=== PATIENT | male | born 1990 | race African-American/Black ===

== ENCOUNTER 2016-03-25 20:47 | Emergency (ER) | payer OTHER ==
[~2016-03-25] VITALS: Ht 152.4 cm; Wt 42.2 kg
[~2016-03-25 20:47] MED LIST: ACETAMINOPHEN-1 EAC1 PO; AUGMENTIN 875-1 EAC1 ORAL; CLEOCIN150 MG ORAL; CLINDAMYCIN HC150 MG ORAL; CLINDAMYCIN HC300 MG ORAL; HYDROCODON-ACE1 EA15 ORAL; IBUPROFEN600 MG ORAL; NKM; NORCO 5-325 TA1 EACH ORAL
[2016-03-25 21:05] VITALS: BP 136/81
[2016-03-25] MEDS ORDERED: BACTROBAN15 GM TOPIC (21:44)
[2016-03-25] MEDS ORDERED: Bacitracin Oint UD TOPIC ONE (21:45)
--- NOTE | 2016-03-25 21:45 | Emergency Room Report ---
History of Present Illness General Chief Complaint: Wound Recheck/Suture Removal Source: Patient Present Illness HPI Is a 26-year-old male who is right-hand dominant. He presents with chief complaint of suture removal. He had lacerated his hand just beneath the fifth MCP joint. This was a month ago. He is now back for suture removal. He said it bled initially for over a week. Now no drainage. No fever chills but no nausea no vomiting. He denies any other complaint. Allergies: Coded Allergies: No Known Allergies (Unverified , 10/05/12) Patient History Past Medical History: see triage record, old chart reviewed Past Surgical History: other Pertinent Family History: none Social History: Reports: smoking Immunizations: other Reviewed Nursing Documentation: PMH: Agreed, PSxH: Agreed Nursing Documentation-PMH Past Medical History: No History, Except For Hx Asthma: Yes Review of Systems Eye: Denies: blurred vision, eye pain ENT: Denies: ear pain, nose congestion, throat swelling Respiratory: Denies: cough, shortness of breath Cardiovascular: Denies: chest pain, palpitations Gastrointestinal: Denies: abdominal pain, diarrhea, nausea, vomiting Musculoskeletal: Denies: back pain, joint pain Skin: Denies: rash Neurological: Denies: headache, numbness Endocrine: Denies: increased thirst, increased urine Hematologic/Lymphatic: Denies: easy bruising All Other Systems: negative except mentioned in HPI Physical Exam Vital Signs Date Time Temp Pulse Resp B/P Pulse Ox O2 Delivery O2 Flow Rate FiO2 03/25/16 21:00 97.3 83 14 136/81 100 Room Air vitals normal Sp02 EP Interpretation: reviewed, normal General Appearance: well appearing, no apparent distress, alert Head: normocephalic, atraumatic Eyes: bilateral eye EOMI, bilateral eye PERRL ENT: hearing grossly normal, normal pharynx Neck: full range of motion, supple, no meningismus Respiratory: chest non-tender, lungs clear, normal breath sounds Cardiovascular #1: regular rate, rhythm, no murmur Gastrointestinal: normal bowel sounds, non tender, no mass, no organomegaly, no bruit, non-distended Musculoskeletal: back normal, gait/station normal, normal range of motion, other - Right hand: At the base of the fifth MCP joint sutures are in place. It scabbed over with dry blood. No redness. No fever. Full range of motion. Neurologic: alert, oriented x3 Psychiatric: mood/affect normal Skin: warm/dry Procedures Additional Procedure Procedure Narrative Procedure: Suture removal Indication: Scheduled Description: Remove the sutures using a small scissors. Dry blood removed also. Wound is healing well except for at the distal in with minimal drainage. Good granulation tissue. Still dehisce slightly. Dressing placed. Medical Decision Making Diagnostic Impression: Primary Impression: Encounter for wound re-check Additional Impression: Encounter for removal of sutures ER Course Patient here for suture removal. Wound is still slightly dehisced. This will heal slowly. No new infection. We'll treat with topical antibiotics. We'll discharge home. Last Vital Signs Date Time Temp Pulse Resp B/P Pulse Ox O2 Delivery O2 Flow Rate FiO2 03/25/16 21:05 97.3 83 14 136/81 100 Room Air Status: improved Disposition: HOME, SELF-CARE Condition: Stable Scripts Mupirocin (BACTROBAN CR) 15 Gm Cream..g. 1 APPLIC TOPIC THREE TIMES A DAY, #30 GM Prov: FEI MONTALVO M.D. 03/25/16 Patient Instructions: Wound Check Additional Instructions: Followup with your DrFer in 7 days. Return if worse. FEI MONTALVO M.D. Mar 25, 2016 21:45
[2016-03-25 21:52] VITALS: BP 136/81
== END 2016-03-25 21:52 | disposition home or self-care (01) ==
LOC: EMR 21:52
DX: T81.33XA Disruption of traumatic injury wound repair, initial encounter (principal); Y84.8 Other medical procedures as the cause of abnormal reaction of the patient, or of later complication, without mention of misadventure at the time of the procedure; Z48.02 Encounter for removal of sutures
CPT/HCPCS: 99283

== ENCOUNTER 2016-07-11 16:11 | Emergency (ER) | payer OTHER ==
[~2016-07-11] VITALS: Ht 154.9 cm; Wt 44.5 kg
[~2016-07-11 16:11] MED LIST changes: +BACTROBAN15 GM TOPIC
[2016-07-11 16:25] VITALS: BP 123/84
[2016-07-11] MEDS ORDERED: CLINDAMYCIN HC150 MG ORAL (16:43)
[2016-07-11] MEDS ORDERED: IBUPROFEN600 MG ORAL (16:43)
--- NOTE | 2016-07-11 16:48 | Emergency Room Report ---
History of Present Illness General Chief Complaint: Toothache Source: Patient Present Illness HPI 26 y/o male c/o right sided dental pain x 3 days. States that he has reoccurring dental infections that usually result in tooth extraction. States that he has had previous hx of dental abscess and had I&D a few years ago but nothing recent. States right lower tooth is painful and believes he's having tooth infection. Pain is worse with movement of jaw and with eating food. No other modifying factors or physical complaints. Allergies: Coded Allergies: No Known Allergies (Unverified , 10/05/12) Patient History Past Medical History: see triage record Social History: Reports: smoking Reviewed Nursing Documentation: PMH: Agreed, PSxH: Agreed Nursing Documentation-PMH Past Medical History: No History, Except For Hx Asthma: Yes Review of Systems All Other Systems: negative except mentioned in HPI Physical Exam Vital Signs Date Time Temp Pulse Resp B/P Pulse Ox O2 Delivery O2 Flow Rate FiO2 07/11/16 16:15 97.3 83 14 123/84 99 Room Air Sp02 EP Interpretation: reviewed, normal General Appearance: no apparent distress, alert, GCS 15, non-toxic Head: normocephalic, atraumatic Eyes: bilateral eye PERRL, bilateral eye normal inspection ENT: hearing grossly normal, normal pharynx, no angioedema, normal voice, other - Poor dentition with abscent teeth present. Right buccal fluctulent mass thats TTP and warm to touch present. Neck: full range of motion, supple/symm/no masses Respiratory: chest non-tender, lungs clear, normal breath sounds, speaking full sentences Cardiovascular #1: regular rate, rhythm, no edema Musculoskeletal: gait/station normal Neurologic: alert, oriented x3 Skin: normal color, no rash, warm/dry, well hydrated Lymphatic: no adenopathy Procedures Incision and Drainage Incision and Drainage : Consent: Verbal Site: Right buccal mucosa Blade Size: 18g needle Wound Location: other - Right buccal mucosa Anesthesia: Lidocaine w/ Epi Volume Anesthetic (ccs): 2 Progress Using a 27g 1" needle, 2cc of lido w/ epi was injected into buccal mucosa. An 18g need was then used to aspirate the wound. There was no fluid returned. Hemostasis was then achieved via direct pressure with gauze. The patient was then given gauze to bite on to prevent trauma from numbing. Post procedural bleeding was approx 3ccs. Patient tolerated procedure w/o complications. Medical Decision Making PA Attestation Dr. Leo is my supervising physician with whom patient management has been discussed with. Diagnostic Impression: Primary Impression: Facial abscess Additional Impressions: dental pain Dental caries ER Course Pt. presents to the ED c/o dental pain Ddx considered but are not limited to dental fracture, dental abscess, dental caries, tooth avulsion, facial abscess Vital signs: are WNL, pt. is afebrile H&PE are most consistent with abscess of buccal mucosa ORDERS: none required at this time, the diagnosis is clinical ED INTERVENTIONS: Needle Aspiration. DISCHARGE: At this time pt. is stable for d/c to home. Will provide printed patient care instructions, and any necessary prescriptions. Care plan and follow up instructions have been discussed with the patient prior to discharge. Last Vital Signs Date Time Temp Pulse Resp B/P Pulse Ox O2 Delivery O2 Flow Rate FiO2 07/11/16 16:25 97.3 83 14 123/84 99 Room Air Status: improved Disposition: HOME, SELF-CARE Condition: Stable Scripts Clindamycin Hcl* (CLINDAMYCIN HCL*) 150 Mg Capsule 300 MG ORAL TID, #30 CAP Prov: DELICIA DAWSON P.A. 07/11/16 Ibuprofen* (MOTRIN*) 600 Mg Tablet 600 MG ORAL Q6H Y for For Pain, #30 TAB Prov: DELICIA DAWSON P.A. 07/11/16 Referrals: [facility],REFERRING (PCP) Patient Instructions: Abscess, Dental Caries Additional Instructions: Take medication as directed. Patient instructed to take ibuprofen and tylenol as needed for pain. Patient to follow up with dentist on Wednesday. Patient should come back sooner if their symptoms do not get better within 3 days of starting treatment or if the red area gets bigger, more swollen, or more painful. DELICIA DAWSON July 11, 2016 16:48
[2016-07-11 17:11] VITALS: BP 123/84
== END 2016-07-11 17:13 | disposition home or self-care (01) ==
LOC: EMR 16:27
DX: L02.01 Cutaneous abscess of face (principal); K02.9 Dental caries, unspecified; F17.200 Nicotine dependence, unspecified, uncomplicated; J45.909 Unspecified asthma, uncomplicated
CPT/HCPCS: 10060

== ENCOUNTER 2018-08-17 12:44 | Emergency (ER) | payer OTHER ==
[~2018-08-17] VITALS: Ht 154.9 cm; Wt 44.5 kg
[2018-08-17] MEDS ORDERED: VENTOLIN HFA18 GM INH (12:50)
[2018-08-17 13:00] VITALS: BP 122/78
--- NOTE | 2018-08-17 14:00 | Emergency Room Report ---
History of Present Illness General Chief Complaint: Toothache Source: Patient Present Illness HPI 28-year-old male presents to the emergency department complaining of 9 out of 10 severity intermittent progressive swelling and tenderness to the left inner cheek over the course of 4 days. He states these symptoms have been intermittent x several months but usually resolve in a day or so. Patient reports frequent dental infections he states that he is supposed to have dental follow-up. Patient denies tooth pain at this time he states pain is primarily in the soft tissues denies fevers or chills denies neck pain or swollen tender lymph nodes. Patient reports that the swelling comes and goes. Denies any aggravating or relieving factors. Allergies: Coded Allergies: No Known Allergies (Unverified , 10/05/12) Patient History Past Medical History: see triage record Past Surgical History: none Pertinent Family History: none Immunizations: UTD Reviewed Nursing Documentation: PMH: Agreed; PSxH: Agreed Nursing Documentation-PMH Hx Asthma: Yes Review of Systems All Other Systems: negative except mentioned in HPI Physical Exam Vital Signs Date Time Temp Pulse Resp B/P (MAP) Pulse Ox O2 Delivery O2 Flow Rate FiO2 08/17/18 12:49 97.5 60 19 122/78 (93) 99 Room Air Sp02 EP Interpretation: reviewed, normal General Appearance: no apparent distress, alert, GCS 15, non-toxic Head: normocephalic, atraumatic Eyes: bilateral eye normal inspection, bilateral eye PERRL ENT: hearing grossly normal, normal pharynx, normal voice, other - dentition is normal, no obvious carries, no palpable fluctuance in the gum lines. swelling to the left lower salivary gland, no fluctuance palpated. pt. with moderate ttp. Neck: full range of motion, no meningismus, no bony tend Respiratory: lungs clear, normal breath sounds, speaking full sentences Cardiovascular #1: regular rate, rhythm Musculoskeletal: back normal, gait/station normal, normal range of motion, non- tender Neurologic: alert, oriented x3, responsive, motor strength/tone normal, sensory intact, speech normal, grossly normal Psychiatric: judgement/insight normal Skin: normal color, no rash, warm/dry, well hydrated Lymphatic: no adenopathy Medical Decision Making PA Attestation Dr. Leroy is my supervising Physician whom patient management has been discussed with. Diagnostic Impression: Primary Impression: Sialodocholithiasis Additional Impression: Sialoadenitis, unspecified ER Course 28-year-old male presents to the emergency department complaining of 9 out of 10 severity intermittent progressive swelling and tenderness to the left inner cheek over the course of 4 days. He states these symptoms have been intermittent x several months but usually resolve in a day or so. Patient reports frequent dental infections he states that he is supposed to have dental follow-up. Patient denies tooth pain at this time he states pain is primarily in the soft tissues denies fevers or chills denies neck pain or swollen tender lymph nodes. Patient reports that the swelling comes and goes. Denies any aggravating or relieving factors. Ddx considered but are not limited to cellulitis, dental abscess, orbital cellulitis, d/l tooth, dental pain. trigeminal neuralgia, sialoadenitis Vital signs: are WNL, pt. is afebrile H&PE are most consistent with infected Sialoadenitis ORDERS: none required at this time, the diagnosis is clinical ED INTERVENTIONS: None required at this time. DISCHARGE: At this time pt. is stable for d/c to home. Will provide printed patient care instructions, and any necessary prescriptions. Care plan and follow up instructions have been discussed with the patient prior to discharge. Last Vital Signs Date Time Temp Pulse Resp B/P (MAP) Pulse Ox O2 Delivery O2 Flow Rate FiO2 08/17/18 12:49 97.5 60 19 122/78 (93) 99 Room Air Status: improved Disposition: HOME, SELF-CARE Condition: Stable Scripts Chlorhexidine Gluconate (CHLORHEXIDINE GLUCONATE) 473 Ml Mouthwash 15 ML MM TID, #473 ML Prov: Kya Clayton 08/17/18 Acetaminophen* (TYLENOL EXTRA STRENGTH*) 500 Mg Tablet 500 MG ORAL Q6H, #20 TAB 0 Refills Prov: Kya Clayton 08/17/18 Amoxicillin/Potassium Clav 875-125* (AUGMENTIN 875-125 TABLET*) 1 Each Tablet 1 TAB ORAL TWICE A DAY for 7 Days, #14 TAB Prov: Kya Clayton 08/17/18 Referrals: NON PHYSICIAN (PCP) Patient Instructions: Salivary Gland Infection, Salivary Stone Additional Instructions: Take medications as directed. Follow up with a Dentist in 3-5 days, even if your symptoms have resolved. * * --Please review list of Dental clinics, if you do not already have a Dentist Return sooner to ED if new symptoms occur, or current symptoms become worse. - Please note that this Emergency Department Report was dictated using [employer] Gamesdisease education specialist technology software, occasionally this can lead to erroneous entry secondary to interpretation by the dictation equipment. Kya Clayton Aug 17, 2018 14:00
[2018-08-17] MEDS ORDERED: TYLENOL EXTRA500 MG ORAL (14:02)
[2018-08-17] MEDS ORDERED: AUGMENTIN 875-1 EAC1 ORAL (14:02)
[2018-08-17] MEDS ORDERED: CHLORHEXIDINE473 ML MM (14:02)
[2018-08-17 14:17] VITALS: BP 122/78
== END 2018-08-17 14:17 | disposition home or self-care (01) ==
LOC: EMR 13:10
DX: K11.5 Sialolithiasis (principal); J45.909 Unspecified asthma, uncomplicated
CPT/HCPCS: 99282

== ENCOUNTER 2018-12-16 14:55 | Emergency (ER) | payer OTHER ==
[~2018-12-16] VITALS: Ht 152.4 cm; Wt 44.5 kg
[~2018-12-16 14:55] MED LIST changes: +CHLORHEXIDINE473 ML MM; +TYLENOL EXTRA500 MG ORAL; +VENTOLIN HFA18 GM INH
[2018-12-16] MEDS ORDERED: NKM (15:11)
[2018-12-16 15:14] VITALS: BP 122/80
--- NOTE | 2018-12-16 15:16 | NUR ---
ED Nurse Note: Pt walked in to ED c/o right upper tooth ache for 2 days. Pt aox4. No distress noted. Swelling noted on right side of the face. Pt states he walked in at dentist's office but was unable to be seen d/t no appointment.
--- NOTE | 2018-12-16 15:53 | Emergency Room Report ---
History of Present Illness General Chief Complaint: Toothache Source: Patient Present Illness HPI 28 YO male presents to the ED C/O 10/ in severity pain, swelling, tenderness to the right upper teeth/jaw x 2 days. Denies fevers and chills. reports poor dentition. He has been to a walk-in clinic the past two days but was unable to be seen there. palpation exacerbates his pain. no relief from OTC pain medications. Denies trauma or fall. Allergies: Coded Allergies: CODEINE (Verified Allergy, Unknown, 12/16/18) Patient History Past Medical History: see triage record Past Surgical History: none Pertinent Family History: none Immunizations: UTD Reviewed Nursing Documentation: PMH: Agreed; PSxH: Agreed Nursing Documentation-PMH Past Medical History: No Stated History Hx Asthma: Yes Review of Systems All Other Systems: negative except mentioned in HPI Physical Exam Vital Signs Date Time Temp Pulse Resp B/P (MAP) Pulse Ox O2 Delivery O2 Flow Rate FiO2 12/16/18 15:09 98.1 54 18 122/80 (94) 98 Room Air Medical Decision Making PA Attestation Dr. Beaulieu is my supervising Physician whom patient management has been discussed with. Diagnostic Impression: Primary Impression: dental pain Additional Impression: Acute pericoronitis ER Course 28 YO male presents to the ED C/O 1010 in severity pain, swelling, tenderness to the right upper teeth/jaw x 2 days. Denies fevers and chills. reports poor dentition. He has been to a walk-in clinic the past two days but was unable to be seen there. palpation exacerbates his pain. no relief from OTC pain medications. Denies trauma or fall. Ddx considered but are not limited to cellulitis, dental abscess, orbital cellulitis, d/l tooth, dental pain. trigeminal neuralgia Vital signs: are WNL, pt. is afebrile H&PE are most consistent with dental abscess. ORDERS: none required at this time, the diagnosis is clinical- no palpable areas of fluctuance, generalized ST swelling of the right cheek. no LAD ED INTERVENTIONS: None required at this time. DISCHARGE: At this time pt. is stable for d/c to home. Will provide printed patient care instructions, and any necessary prescriptions. Care plan and follow up instructions have been discussed with the patient prior to discharge. Last Vital Signs Date Time Temp Pulse Resp B/P (MAP) Pulse Ox O2 Delivery O2 Flow Rate FiO2 12/16/18 15:14 98.1 90 18 122/80 98 Room Air Disposition: HOME, SELF-CARE Referrals: [facility],REFERRING (PCP) [facility] Patient Instructions: Dental Pain Additional Instructions: Take medications as directed. Follow up with a Dentist in 3-5 days, even if your symptoms have resolved. * * --Please review list of Dental clinics, if you do not already have a Dentist Return sooner to ED if new symptoms occur, or current symptoms become worse. Do not drink alcohol, drive, or operate heavy machinery while taking Tylenol # 3 as this may cause drowsiness. - Please note that this Emergency Department Report was dictated using Cerestranscriptionist technology software, occasionally this can lead to erroneous entry secondary to interpretation by the dictation equipment. Kya Clayton Dec 16, 2018 15:53
[2018-12-16] MEDS ORDERED: NORCO 5-325 TA1 EACH ORAL ×2 (15:54→15:56)
[2018-12-16] MEDS ORDERED: AUGMENTIN 875-1 EAC1 ORAL (15:54)
[2018-12-16] MEDS ORDERED: IBUPROFEN600 MG ORAL ×2 (15:54→15:56)
--- NOTE | 2018-12-16 16:02 | NUR ---
ER DISCHARGE NOTE: Patient is cleared to be discharged per ERMD, pt is aox4, on room air, with stable vital signs. pt was given dc and prescription instructions, pt was able to verbalize understanding, pt id band removed without complications. pt is able to ambulate with steady gait. pt took all belongings.
[2018-12-16 16:03] VITALS: BP 125/80
== END 2018-12-16 16:02 | disposition home or self-care (01) ==
LOC: EMR 15:34
DX: K05.20 Aggressive periodontitis, unspecified (principal); J45.909 Unspecified asthma, uncomplicated; Z88.6 Allergy status to analgesic agent
CPT/HCPCS: 99281

== ENCOUNTER 2019-03-11 12:55 | Emergency (ER) | payer OTHER ==
[~2019-03-11] VITALS: Ht 152.4 cm; Wt 40.8 kg
--- NOTE | 2019-03-11 13:00 | NUR ---
Pt called to be triaged not present in waiting room at this time.
--- NOTE | 2019-03-11 13:16 | NUR ---
ED Nurse Note: Pt walked in from home c/o tooth ache and right face swelling x 2 days. Pt went to the dentist yesterday and received antibiotics, but says that he woke up this morning and his face is more swollen and he's in more pain than yesterday. Respirations even and unlabored on room air. Vitals stable as documented
[2019-03-11 13:18] VITALS: BP 129/84
--- NOTE | 2019-03-11 13:41 | Emergency Room Report ---
History of Present Illness General Chief Complaint: Toothache Source: Patient Present Illness HPI 29-year-old male presents to the emergency department complaining of 10 out of 10 severity progressive right upper dental pain x3 days with no response to azithromycin which was given to him by a dentist. Patient reports progressive swelling in the soft tissues of the right side of his face. He denies fevers or chills. Patient reports eating, talking or opening his mouth too wide exacerbates pain. He denies taking any medication for swelling or pain. He has a history of poor dentition and requires extensive procedural work such as root canals and dentures which has not been completed in some time. Patient has had multiple visits to the ED for similar symptoms. Allergies: Coded Allergies: CODEINE (Verified Allergy, Unknown, 12/16/18) Patient History Past Medical History: see triage record Past Surgical History: none Pertinent Family History: none Reviewed Nursing Documentation: PMH: Agreed; PSxH: Agreed Nursing Documentation-PMH Past Medical History: No History, Except For Hx Asthma: Yes Review of Systems All Other Systems: negative except mentioned in HPI Physical Exam Vital Signs Date Time Temp Pulse Resp B/P (MAP) Pulse Ox O2 Delivery O2 Flow Rate FiO2 03/11/19 13:11 98.2 59 16 129/84 (99) 99 Room Air Sp02 EP Interpretation: reviewed, normal General Appearance: no apparent distress, alert, GCS 15, non-toxic Head: normocephalic, atraumatic Eyes: bilateral eye normal inspection, bilateral eye PERRL, bilateral eye EOMI - without pain, bilateral eye other ENT: hearing grossly normal, normal voice, TMs + canals normal, uvula midline, moist mucus membranes, other - all the upper teeth are broken and decaying at the gumline, there is ST swelling in the right maxilla area and the upper lateral gum posteriorly on the right side. no localized palpable fluctuance. halitosis noted. Neck: full range of motion Respiratory: lungs clear, normal breath sounds, speaking full sentences Cardiovascular #1: regular rate, rhythm Musculoskeletal: normal range of motion, gait/station normal, non-tender Neurologic: alert, motor strength/tone normal, oriented x3, sensory intact, responsive, speech normal Psychiatric: judgement/insight normal Skin: other - ST swelling of the right maxilla area Lymphatic: no adenopathy Medical Decision Making PA Attestation Dr. Leroy is my supervising Physician whom patient management has been discussed with. Diagnostic Impression: Primary Impression: Dental abscess ER Course Pt. presents to the ED c/o pain, swelling, and erythema to the right upper jaw, and tooth pain associated with multiple broken teeth x 3 days. Ddx considered but are not limited to cellulitis, dental abscess, orbital cellulitis, d/l tooth, dental pain. trigeminal neuralgia Vital signs: are WNL, pt. is afebrile H&PE are most consistent with dental abscess. ORDERS: none required at this time, the diagnosis is clinical ED INTERVENTIONS: None required at this time. - Pt. declines Toradol IM DISCHARGE: At this time pt. is stable for d/c to home. Will provide printed patient care instructions, and any necessary prescriptions. Care plan and follow up instructions have been discussed with the patient prior to discharge. Last Vital Signs Date Time Temp Pulse Resp B/P (MAP) Pulse Ox O2 Delivery O2 Flow Rate FiO2 03/11/19 13:18 98.2 74 16 129/84 99 Room Air Disposition: HOME, SELF-CARE Condition: Stable Scripts Chlorhexidine Gluconate (CHLORHEXIDINE GLUCONATE) 473 Ml Mouthwash 10 ML MM TID, #473 ML Prov: Kya Clayton 03/11/19 Ibuprofen* (MOTRIN*) 600 Mg Tablet 600 MG ORAL THREE TIMES A DAY, #30 TAB 0 Refills Prov: Kya Clayton 03/11/19 Amoxicillin/Potassium Clav 875-125* (AUGMENTIN 875-125 TABLET*) 1 Each Tablet 1 TAB ORAL TWICE A DAY for 10 Days, #20 TAB Prov: Kya Clayton 03/11/19 Referrals: [facility],REFERRING (PCP) [facility] [employer] [facility] [employer] [facility] Patient Instructions: Dental Abscess, [id number], Dental Pain Additional Instructions: Take medications as directed. Follow up with a Dentist in 3-5 days, even if your symptoms have resolved. * * --Please review list of Dental clinics, if you do not already have a Dentist Return sooner to ED if new symptoms occur, or current symptoms become worse. Do not drink alcohol, drive, or operate heavy machinery while taking Tylenol # 3 as this may cause drowsiness. - Please note that this Emergency Department Report was dictated using Dragon nuclear powerplant supervisor technology software, occasionally this can lead to erroneous entry secondary to interpretation by the dictation equipment. Kya Clayton Mar 11, 2019 13:41
[2019-03-11] MEDS ORDERED: AUGMENTIN 875-1 EAC1 ORAL (13:43)
[2019-03-11] MEDS ORDERED: IBUPROFEN600 MG ORAL (13:43)
[2019-03-11] MEDS ORDERED: CHLORHEXIDINE473 ML MM (13:43)
[2019-03-11 13:48] VITALS: BP 129/84
--- NOTE | 2019-03-11 13:48 | NUR ---
ER DISCHARGE NOTE: Patient is cleared to be discharged per ERMD, pt is aox4, on room air, with stable vital signs as documented. pt was given dc and prescription instructions and able to verbalize understanding, pt id band removed. pt is able to ambulate with steady gait. pt taking all belongings.
== END 2019-03-11 13:49 | disposition home or self-care (01) ==
LOC: EMR 13:16
DX: K04.7 Periapical abscess without sinus (principal); J45.909 Unspecified asthma, uncomplicated; Z88.5 Allergy status to narcotic agent
CPT/HCPCS: 99282

== ENCOUNTER 2019-04-01 14:46 | Emergency (ER) | payer OTHER ==
[~2019-04-01] VITALS: Ht 152.4 cm; Wt 40.8 kg
--- NOTE | 2019-04-01 15:05 | NUR ---
ED Nurse Note: PT WALKED IN C/O RIGHT GUM ABSCESS [id number] AFTER VISITING DENTIST. PT STATES PAIN 10/10. PT DENIES FEVER. VSS, NAD. WILL CONTINUE TO MONITOR PATIENT.
[2019-04-01 15:16] VITALS: BP 133/77
[2019-04-01] MEDS ORDERED: Dexamethasone 4mg/ml vial IVP ONE (15:30)
[2019-04-01] MEDS ORDERED: Ketorolac 30mg Inj IV ONE (15:30)
[2019-04-01] MEDS ORDERED: Omnipaque-300 100ml vial INJ PRN (15:30)
[2019-04-01 16:40] LABS: BASOPHILS % (AUTO) 1.2 % (0.0-2.0); EOSINOPHILS % (AUTO) 4.5 % (0.0-3.0); HEMATOCRIT 48.4 % (42.0-52.0); HEMOGLOBIN 14.7 G/DL (14.2-18.0); LYMPHOCYTES % (AUTO) 18.4 % (20.0-45.0); MEAN CORPUSCULAR VOLUME 99 FL (80-99); MONOCYTES % (AUTO) 6.8 % (1.0-10.0); NEUTROPHILS % (AUTO) 69.1 % (45.0-75.0); PLATELET COUNT 261 K/UL (150-450); RED BLOOD COUNT 4.89 M/UL (4.70-6.10); RED CELL DISTRIBUTION WIDTH 12.5 % (11.6-14.8); WHITE BLOOD COUNT 14.5 K/UL (4.8-10.8)
[2019-04-01 16:47] LABS: ANION GAP 11 mmol/L (5-15); BLOOD UREA NITROGEN 7 mg/dL (7-18); CALCIUM 9.1 MG/DL (8.5-10.1); CARBON DIOXIDE 28 MMOL/L (21-32); CHLORIDE 105 MMOL/L (98-107); POTASSIUM 3.9 MMOL/L (3.5-5.1); SODIUM 143 MMOL/L (136-145)
[2019-04-01 16:59] LABS: ALANINE AMINOTRANSFERASE 31 U/L (12-78); ALBUMIN 4.5 G/DL (3.4-5.0); ALBUMIN/GLOBULIN RATIO 1.2 (1.0-2.7); ALKALINE PHOSPHATASE 109 U/L (46-116); ASPARTATE AMINO TRANSFERASE 22 U/L (15-37); BILIRUBIN,TOTAL 0.6 MG/DL (0.2-1.0)
--- NOTE | 2019-04-01 17:12 | NUR ---
ED Nurse Note: pt went for ct accompanied by radiology specialist in stable condition.
--- NOTE | 2019-04-01 17:20 | NUR ---
ED Nurse Note: PT BACK FROM CT ACCOMPANIED BY CONFERENCE SERVICES COORDINATOR IN STABLE CONDITION.
--- NOTE | 2019-04-01 17:58 | Emergency Room Report ---
History of Present Illness General Chief Complaint: Skin Rash/Abscess Source: Patient, Medical Record Present Illness HPI 29-year-old male with unknown past medical history who has been here multiple times for dental infection here complaining of right-sided dental pain x2 months. Patient reports that he was at a dental office earlier today as reports that the dentist started cutting through his upper gum and patient was still feeling pain and got into an argument with the dentist and according to patient his dentist told him to leave and go to the emergency room. At this time swelling is noted however no pus drainage noted and no laceration noted inside the mouth. Patient appears to be under the influence of unknown substance. Denies fever and chills, chest pain, shortness of breath, palpitation, other associated symptoms. Has not yet taken medication for symptom relief. Allergies: Coded Allergies: CODEINE (Verified Allergy, Unknown, 12/16/18) Patient History Past Medical History: see triage record Past Surgical History: unable to obtain Pertinent Family History: none Immunizations: UTD Reviewed Nursing Documentation: PMH: Agreed; PSxH: Agreed Nursing Documentation-PMH Hx Asthma: Yes Review of Systems All Other Systems: negative except mentioned in HPI Physical Exam Vital Signs Date Time Temp Pulse Resp B/P (MAP) Pulse Ox O2 Delivery O2 Flow Rate FiO2 04/01/19 15:00 97.5 61 18 140/80 (100) 98 Room Air Sp02 EP Interpretation: reviewed, normal General Appearance: no apparent distress, alert, GCS 15, non-toxic Head: normocephalic, atraumatic Eyes: bilateral eye normal inspection, bilateral eye PERRL ENT: hearing grossly normal, normal pharynx, no angioedema, normal voice, other - Infection of right upper molar no laceration noted minimal swelling noted Neck: full range of motion, supple/symm/no masses Respiratory: chest non-tender, lungs clear, normal breath sounds, no rhonchi, no wheezing, speaking full sentences Cardiovascular #1: regular rate, rhythm, no edema, no murmur Gastrointestinal: non tender, soft Genitourinary: no CVA tenderness Musculoskeletal: back normal Neurologic: alert, motor strength/tone normal, oriented x3, sensory intact, responsive, speech normal Psychiatric: judgement/insight normal, memory normal, mood/affect normal, no suicidal/homicidal ideation Skin: no rash Lymphatic: no adenopathy Medical Decision Making PA Attestation All my diagnosis and treatment plans were reviewed ad discussed with my supervising physician Dr. Leroy Diagnostic Impression: Primary Impression: Dental infection ER Course 29-year-old male with unknown past medical history who has been here multiple times for dental infection here complaining of right-sided dental pain x2 months. Patient reports that he was at a dental office earlier today as reports that the dentist started cutting through his upper gum and patient was still feeling pain and got into an argument with the dentist and according to patient his dentist told him to leave and go to the emergency room. At this time swelling is noted however no pus drainage noted and no laceration noted inside the mouth. Patient appears to be under the influence of unknown substance. Denies fever and chills, chest pain, shortness of breath, palpitation, other associated symptoms. Has not yet taken medication for symptom relief. Ddx considered but are not limited to : Cellulitis, dental infection versus periodontal abscess, versus sinus abscess, superficial infection, abscess Vital signs: are WNL, pt. is afebrile H&PE are most consistent with: Dental infection without abscess ORDERS: CBC, CMP, facial bone CT with contrast, clindamycin p.o., ibuprofen p.o. ED INTERVENTIONS: Clindamycin IV, Toradol IV DISCHARGE: At this time pt. is stable for d/c to home. Will provide printed patient care instructions, and any necessary prescriptions. Care plan and follow up instructions have been discussed with the patient prior to discharge. I spoke to the radiologist at [facility] over the phone and was notified that no abscess noted and solely minimal soft tissue swelling noted over the right maxilla most likely secondary to numbing by dentist prior to coming here. Patient to follow-up with dentist, take medication as directed, if worsening symptoms return to the emergency room CT/MRI/US Diagnostic Results CT/MRI/US Diagnostic Results : Imaging Test Ordered: Facial CT with contrast Impression FINDINGS: Bones/joints: No acute fracture. Soft tissues: Mild edema seen within the soft tissues of the right face, which may be inflammatory or infectious. No evidence of abscess. Orbits: Unremarkable. Sinuses: Minimal mucosal thickening in the paranasal sinuses. Dental: Dental caries with periapical lucencies suggesting periodontal disease. IMPRESSION: 1. Mild edema seen within the soft tissues of the right face, which may be inflammatory or infectious. No evidence of abscess. 2. Dental caries with periapical lucencies suggesting periodontal disease.No abscess noted. peridentitis noted with dental caries Last Vital Signs Date Time Temp Pulse Resp B/P (MAP) Pulse Ox O2 Delivery O2 Flow Rate FiO2 04/01/19 16:28 98.1 04/01/19 15:16 68 18 133/77 98 Room Air Disposition: HOME, SELF-CARE Condition: Stable Scripts Ibuprofen (Ibu) 800 Mg Tablet 800 MG PO TID, #30 TAB Prov: Henrry Hawthorne 04/01/19 Clindamycin Hcl* (CLINDAMYCIN HCL*) 150 Mg Capsule 300 MG ORAL FOUR TIMES A DAY for 7 Days, #28 CAP Prov: Henrry Hawthorne 04/01/19 Referrals: NON PHYSICIAN (PCP) Patient Instructions: Dental Pain, [id number] Additional Instructions: At this time no abscess noted you need to follow-up with a dentist for further assessment, take antibiotics as directed, apply warm compress, if worsening symptoms, fever and chills return to emergency room Henrry Hawthorne Apr 01, 2019 17:58
[2019-04-01] MEDS ORDERED: CLINDAMYCIN HC150 MG ORAL (17:59)
[2019-04-01] MEDS ORDERED: IBU800 MG PO (17:59)
[2019-04-01 18:00] VITALS: BP 129/68
--- NOTE | 2019-04-01 18:00 | NUR ---
ER DISCHARGE NOTE: Patient is cleared to be discharged per ERPA, pt is aox4, on room air, with stable vital signs. pt was given dc and prescription instructions, pt was able to verbalize understanding, pt id band and iv site removed without complications. pt is able to ambulate with steady gait. pt took all belongings.
--- NOTE | 2019-04-01 18:02 | Diagnostic Imaging Report ---
EXAM: CT Maxillofacial Without and With Intravenous Contrast CLINICAL HISTORY: ABSCESS TECHNIQUE: Axial computed tomography images of the face without and with intravenous contrast. CTDI is 24 mGy and DLP is 4, 77.7 mGy-cm. One or more of the following dose reduction techniques were used: automated exposure control, adjustment of the mA and/or kV according to patient size, use of iterative reconstruction technique. COMPARISON: No relevant prior studies available. FINDINGS: Bones/joints: No acute fracture. Soft tissues: Mild edema seen within the soft tissues of the right face, which may be inflammatory or infectious. No evidence of abscess. Orbits: Unremarkable. Sinuses: Minimal mucosal thickening in the paranasal sinuses. Dental: Dental caries with periapical lucencies suggesting periodontal disease. IMPRESSION: 1. Mild edema seen within the soft tissues of the right face, which may be inflammatory or infectious. No evidence of abscess. 2. Dental caries with periapical lucencies suggesting periodontal disease. <MYCVCSECTION> Communications: 04/01/19 17:51 Call Doctor Regarding Above results, called [employer] on 04/01 17:51 (-08:00)
== END 2019-04-01 18:00 | disposition home or self-care (01) ==
LOC: EMR 17:07
DX: K04.7 Periapical abscess without sinus (principal); Z88.6 Allergy status to analgesic agent; K02.9 Dental caries, unspecified; R60.0 Localized edema
CPT/HCPCS: 36415; 70488; 80053; 85025; 96365; 96375; J1100; J1885; Q9967; Z7502; 99284; S0077

== ENCOUNTER 2019-12-21 19:05 | Emergency (ER) | payer OTHER ==
[~2019-12-21] VITALS: Ht 160 cm; Wt 47.6 kg
[~2019-12-21 19:05] MED LIST changes: +IBU800 MG PO; +IBUPROFEN600 M1 ORAL
[2019-12-21 19:14] VITALS: BP 131/94
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
[2019-12-21] MEDS ORDERED: IBU800 MG PO (19:57)
[2019-12-21] MEDS ORDERED: TYLENOL EXTRA500 MG ORAL (19:57)
[2019-12-21] MEDS ORDERED: CLARITIN-D 121 EAC1 ORAL (19:58)
[2019-12-21 20:03] VITALS: BP 122/78
== END 2019-12-21 20:03 | disposition home or self-care (01) ==
LOC: EMR 19:30
DX: S00.33XA Contusion of nose, initial encounter (principal); J45.909 Unspecified asthma, uncomplicated; Y04.2XXA Assault by strike against or bumped into by another person, initial encounter; Y93.9 Activity, unspecified; Y92.9 Unspecified place or not applicable
CPT/HCPCS: 70486; Z7502; 99284